=== PATIENT | female | born 2000 | race Caucasian/White ===

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

== ENCOUNTER 2022-08-04 14:22 | Inpatient (IN) | payer OTHER ==
[~2022-08-04] VITALS: Ht 160 cm; Wt 54.4 kg
[~2022-08-04 14:22] MED LIST changes: +SEPTDS PO
[2022-08-04 14:40] VITALS: BP 103/61
[2022-08-04 16:33] LABS: BILIRUBIN 1+ (Negative); BLOOD 3+ (Negative); CLARITY Cloudy (Clear); COLOR Red (Yellow); GLUCOSE 1+ (Negative); KETONE 4+ (Negative); LEUKO ESTERASE 2+ (Negative); NITRITE Negative (Negative); PH 5.5 (4.5-8.0); SPECIFIC GRAVITY >= 1.030 (1.001-1.030)
[2022-08-04 16:56] LABS: BASO # 0.1 10*3/uL (0.0-0.1); BASO % 0.5 % (0.0-1.0); EOS % 0.1 % (1.0-4.0); HEMATOCRIT 37.6 % (37.0-47.0); LYMPH # 0.9 10*3/uL (1.3-4.4); LYMPH % 5.1 % (27.0-41.0); MEAN CELL VOLUME 84.1 fl (81.0-99.0); MEAN CORPUSCULAR HGB 30.4 pg (27.0-31.0); MEAN CORPUSCULAR HGB CONC 36.2 g/dl (33.0-37.0); MEAN PLATELET VOLUME 10.9 fl (9.6-12.3); MONO # 0.8 10*3/uL (0.1-1.0); MONO % 4.6 % (3.0-9.0); NEUT % 89.3 % (47.0-73.0); PLATELET COUNT AUTOMATED 264 10*3/uL (130-400); RED BLOOD COUNT 4.47 10*6/uL (4.10-5.10); RED CELL DISTRI WIDTH 11.6 % (0-14.5); WHITE BLOOD COUNT 16.8 10*3/uL (4.8-10.8)
[2022-08-04 17:06] LABS: RBC 31-40 rbc/hpf (0-2)
[2022-08-04 17:07] LABS: EPITHELIAL CELLS 21-30
[2022-08-04 17:12] LABS: ALKALINE PHOSPHATASE 47 U/L (46-116); BUN 9 mg/dl (9-23); CHLORIDE 103 mmol/L (98-107); CREATININE 0.67 mg/dL (0.55-1.02); LIPASE 34 U/L (12-53); POTASSIUM 3.2 mmol/L (3.4-5.1); SGPT/ALT 13 U/L (10-49); SODIUM 138 mmol/L (136-145); TOTAL PROTEIN 7.5 gm/dL (6.0-8.0)
== END 2022-08-05 01:34 | disposition left against medical advice (07) | DRG 720 ==
LOC: ED 14:22 → EDHOLD 20:42
PROVIDERS: Physician Assistant; ADMIT Internal Medicine; ATTEND Internal Medicine
DX: A41.9 Sepsis, unspecified organism (principal); N30.01 Acute cystitis with hematuria; K52.9 Noninfective gastroenteritis and colitis, unspecified; E87.20 Acidosis, unspecified; F41.9 Anxiety disorder, unspecified; R65.20 Severe sepsis without septic shock; E87.6 Hypokalemia; R73.9 Hyperglycemia, unspecified; F90.9 Attention-deficit hyperactivity disorder, unspecified type; F12.90 Cannabis use, unspecified, uncomplicated; Z82.49 Family history of ischemic heart disease and other diseases of the circulatory system; Z71.6 Tobacco abuse counseling; Z72.0 Tobacco use; Z53.29 Procedure and treatment not carried out because of patient's decision for other reasons

== ENCOUNTER → 2022-08-10 | Outpatient (CLI) | payer OTHER ==
[2022-08-10 09:56] LABS: BASO # 0.1 10*3/uL (0.0-0.1); BASO % 1.7 % (0.0-1.0); EOS # 0.3 10*3/uL (0.0-0.4); EOS % 4.9 % (1.0-4.0); HEMATOCRIT 38.9 % (37.0-47.0); LYMPH # 2.2 10*3/uL (1.3-4.4); LYMPH % 36.7 % (27.0-41.0); MEAN CELL VOLUME 88.2 fl (81.0-99.0); MEAN CORPUSCULAR HGB 30.6 pg (27.0-31.0); MEAN CORPUSCULAR HGB CONC 34.7 g/dl (33.0-37.0); MONO # 0.5 10*3/uL (0.1-1.0); MONO % 8.9 % (3.0-9.0); NEUT # 2.8 10*3/uL (2.3-7.9); NEUT % 47.6 % (47.0-73.0); PLATELET COUNT AUTOMATED 211 10*3/uL (130-400); RED BLOOD COUNT 4.41 10*6/uL (4.10-5.10); WHITE BLOOD COUNT 5.9 10*3/uL (4.8-10.8)
== END | disposition home or self-care (01) ==
LOC: RESCLI 03:52
PROVIDERS: Internal Medicine; ATTEND Internal Medicine
DX: F41.1 Generalized anxiety disorder (principal); R10.9 Unspecified abdominal pain; D64.9 Anemia, unspecified; R11.0 Nausea; J30.9 Allergic rhinitis, unspecified; J45.20 Mild intermittent asthma, uncomplicated; K21.9 Gastro-esophageal reflux disease without esophagitis; F90.9 Attention-deficit hyperactivity disorder, unspecified type; Z98.890 Other specified postprocedural states; F17.200 Nicotine dependence, unspecified, uncomplicated; Z72.89 Other problems related to lifestyle; Z91.010 Allergy to peanuts; Z91.018 Allergy to other foods; Z79.899 Other long term (current) drug therapy

== ENCOUNTER 2022-10-24 20:08 | Emergency (ER) | payer OTHER ==
[~2022-10-24] VITALS: Ht 160 cm; Wt 54.4 kg
== END 2022-10-24 22:28 | disposition home or self-care (01) ==
LOC: ED 20:08
DX: S81.852A Open bite, left lower leg, initial encounter (principal); Z98.890 Other specified postprocedural states; F12.90 Cannabis use, unspecified, uncomplicated; W54.0XXA Bitten by dog, initial encounter; Y93.89 Activity, other specified; Y92.89 Other specified places as the place of occurrence of the external cause; Y99.8 Other external cause status

== ENCOUNTER → 2022-11-16 | Outpatient (CLI) | payer OTHER | END | disposition home or self-care (01) | LOC: LAB 15:58 | PROVIDERS: ATTEND Nurse Practitioner Women's Health | DX: N91.2 Amenorrhea, unspecified (principal) ==

== ENCOUNTER → 2022-12-02 | Outpatient (CLI) | payer OTHER ==
[2022-12-02 18:06] LABS: TOTAL PROTEIN 7.5 gm/dL (6.0-8.0)
[2022-12-03 14:08] LABS: t-TRANSGLUTAMINASE (tTG) IGA <2 U/mL (0-3)
== END ==
LOC: US 16:00 → LAB 17:03
PROVIDERS: Pediatrics Pediatric Gastroenterology; ATTEND Nurse Practitioner Women's Health
DX: N83.01 Follicular cyst of right ovary (principal); N83.02 Follicular cyst of left ovary

== ENCOUNTER → 2024-05-04 | Outpatient (CLI) | payer OTHER ==
[~2024-05-04] MED LIST changes: +AVPAK AZITHROM250 M1 PO; +PREDNISONE50 MG PO
== END | disposition home or self-care (01) ==
LOC: LAB 10:46
PROVIDERS: ATTEND Family Medicine
DX: R09.89 Other specified symptoms and signs involving the circulatory and respiratory systems (principal)

== ENCOUNTER 2024-05-05 01:29 | Emergency (ER) | payer OTHER ==
[~2024-05-05] VITALS: Ht 160 cm; Wt 59.4 kg
[~2024-05-05 01:29] MED LIST changes: -AVPAK AZITHROM250 M1 PO; -PREDNISONE50 MG PO
[2024-05-05] MEDS ORDERED: AVPAK AZITHROM250 M1 PO (02:37)
[2024-05-05] MEDS ORDERED: PREDNISONE50 MG PO (02:37)
[2024-05-05] MEDS ORDERED: predniSONE 20 MG TAB PO ONE (02:40)
[2024-05-05] MEDS ORDERED: AZITHROMYCIN 250 MG TAB PO ONE (02:40)
== END 2024-05-05 02:59 | disposition home or self-care (01) ==
LOC: ED 01:29
DX: J40 Bronchitis, not specified as acute or chronic (principal); F12.90 Cannabis use, unspecified, uncomplicated; Z98.890 Other specified postprocedural states

== ENCOUNTER 2025-01-07 05:58 | Emergency (ER) | payer OTHER ==
[~2025-01-07] VITALS: Ht 160 cm; Wt 70.3 kg
[~2025-01-07 05:58] MED LIST changes: +AVPAK AZITHROM250 M1 PO; +PREDNISONE50 MG PO
[2025-01-07] MEDS ORDERED: PREDNISONE50 MG PO (08:02)
[2025-01-07] MEDS ORDERED: OMNICEF300 MG PO (08:02)
[2025-01-07] MEDS ORDERED: VIBRAMYCIN100 MG PO (08:02)
== END 2025-01-07 08:13 | disposition home or self-care (01) ==
LOC: ED 05:58
DX: J40 Bronchitis, not specified as acute or chronic (principal); F12.90 Cannabis use, unspecified, uncomplicated; F17.220 Nicotine dependence, chewing tobacco, uncomplicated; Z79.899 Other long term (current) drug therapy

== ENCOUNTER 2025-02-02 14:07 | Emergency (ER) | payer OTHER ==
[~2025-02-02] VITALS: Ht 160 cm; Wt 74.8 kg
[~2025-02-02 14:07] MED LIST changes: +OMNICEF300 MG PO; +VIBRAMYCIN100 MG PO
[2025-02-02] MEDS ORDERED: AMITRIPTYLINE10 MG PO (14:33)
[2025-02-02] MEDS ORDERED: LAMOTRIGINE150 MG PO (14:34)
[2025-02-02] MEDS ORDERED: PRISTIQ50 MG PO (14:34)
[2025-02-02] MEDS ORDERED: CAPLYTA42 MG PO (14:34)
[2025-02-02] MEDS ORDERED: HYDROXYZINE HCL25 MG PO (14:34)
[2025-02-02] MEDS ORDERED: BUSPIRONE HCL10 MG PO (14:35)
[2025-02-02] MEDS ORDERED: NAPROSYN500 MG PO (15:34)
[2025-02-02] MEDS ORDERED: NAPROXEN 250 MG TAB PO ONE (15:35)
== END 2025-02-02 15:38 | disposition home or self-care (01) ==
LOC: ED 14:07
DX: S63.614A Unspecified sprain of right ring finger, initial encounter (principal); Z79.899 Other long term (current) drug therapy; F17.200 Nicotine dependence, unspecified, uncomplicated; X58.XXXA Exposure to other specified factors, initial encounter; Y93.89 Activity, other specified; Y92.89 Other specified places as the place of occurrence of the external cause; Y99.8 Other external cause status

== ENCOUNTER 2025-02-26 18:46 | Emergency (ER) | payer OTHER ==
[~2025-02-26] VITALS: Ht 165.1 cm; Wt 77.1 kg
[~2025-02-26 18:46] MED LIST changes: +AMITRIPTYLINE10 MG PO; +BUSPIRONE HCL10 MG PO; +CAPLYTA42 MG PO; +HYDROXYZINE HCL25 MG PO; +LAMOTRIGINE150 MG PO; +NAPROSYN500 MG PO; +PRISTIQ50 MG PO
[2025-02-26] MEDS ORDERED: Acetaminophen/Hydrocodone 5 MG/325 MG TABLET PO ONE (21:05)
[2025-02-26] MEDS ORDERED: HYDROCODONE-AC1 EAC1 PO (22:02)
== END 2025-02-26 22:07 | disposition home or self-care (01) ==
LOC: ED 18:46
DX: S62.316A Displaced fracture of base of fifth metacarpal bone, right hand, initial encounter for closed fracture (principal); F31.9 Bipolar disorder, unspecified; F41.9 Anxiety disorder, unspecified; F12.90 Cannabis use, unspecified, uncomplicated; F17.200 Nicotine dependence, unspecified, uncomplicated; Z79.899 Other long term (current) drug therapy; W22.01XA Walked into wall, initial encounter; Y93.89 Activity, other specified; Y92.89 Other specified places as the place of occurrence of the external cause; Y99.8 Other external cause status

== ENCOUNTER → 2025-03-07 | Outpatient (CLI) | payer OTHER ==
[~2025-03-07] MED LIST changes: +HYDROCODONE-AC1 EAC1 PO
[2025-03-07 16:57] LABS: BASO # 0.0 10*3/uL (0.0-0.1); BASO % 0.4 % (0.0-1.0); EOS # 0.9 10*3/uL (0.0-0.4); EOS % 12.3 % (1.0-4.0); MEAN CELL VOLUME 88.2 fl (81.0-99.0); MEAN CORPUSCULAR HGB 28.8 pg (27.0-31.0); MEAN PLATELET VOLUME 9.9 fl (9.6-12.3); MONO # 0.6 10*3/uL (0.1-1.0); MONO % 7.5 % (3.0-9.0); NEUT # 4.0 10*3/uL (2.3-7.9); NEUT % 54.4 % (47.0-73.0); NUCLEATED RED BLOOD CELL 0.0 % (0.0-0.0); NUCLEATED RED BLOOD CELL 0.0 10*3/uL (0.0-0.0); PLATELET COUNT AUTOMATED 260 10*3/uL (130-400); RED CELL DISTRI WIDTH 12.9 % (0-14.5)
[2025-03-07 17:22] LABS: BUN 8 mg/dl (9-23); FREE T4 1.13 ng/dl (0.89-1.76); LDL CHOLESTEROL 114 mg/dL (9-159); SGPT/ALT 17 U/L (5-49)
== END ==
LOC: ORTHO 02:29 → LAB 02:29 → ORTHO 15:10
PROVIDERS: Nurse Practitioner; ATTEND Orthopaedic Surgery
DX: S62.345D Nondisplaced fracture of base of fourth metacarpal bone, left hand, subsequent encounter for fracture with routine healing (principal); X58.XXXA Exposure to other specified factors, initial encounter; Y93.89 Activity, other specified; Y92.89 Other specified places as the place of occurrence of the external cause; Y99.8 Other external cause status

== ENCOUNTER 2025-04-23 23:21 | Emergency (ER) | payer OTHER ==
[~2025-04-23] VITALS: Ht 160 cm; Wt 68.0 kg
[2025-04-23] MEDS ORDERED: SODIUM CHLORIDE 0.9% 1,000 ML IV ONE (23:45)
[2025-04-23] MEDS ORDERED: Ondansetron Hydrochloride 4 MG/2 ML VIAL IV ONE (23:45)
== END 2025-04-24 01:04 | disposition left against medical advice (07) ==
LOC: ED 23:21
DX: R11.2 Nausea with vomiting, unspecified (principal); F12.90 Cannabis use, unspecified, uncomplicated; F17.290 Nicotine dependence, other tobacco product, uncomplicated; Z53.29 Procedure and treatment not carried out because of patient's decision for other reasons

== ENCOUNTER 2025-05-31 18:57 | Emergency (ER) | payer OTHER ==
[~2025-05-31] VITALS: Ht 165.1 cm; Wt 68.0 kg
[2025-05-31 19:33] LABS: BILIRUBIN Negative (Negative); BLOOD Negative (Negative); CLARITY Clear (Clear); COLOR Yellow (Yellow); KETONE 2+ (Negative); LEUKO ESTERASE Trace (Negative); NITRITE Negative (Negative); PH 6.5 (4.5-8.0); SPECIFIC GRAVITY 1.020 (1.001-1.030); UROBILINOGEN 1.0 E.U./dl (0.0-1.0)
[2025-05-31 19:34] LABS: BASO # 0.1 10*3/uL (0.0-0.1); BASO % 0.8 % (0.0-1.0); EOS # 0.2 10*3/uL (0.0-0.4); EOS % 2.5 % (1.0-4.0); MEAN CELL VOLUME 88.1 fl (81.0-99.0); MEAN CORPUSCULAR HGB 29.7 pg (27.0-31.0); MEAN PLATELET VOLUME 10.2 fl (9.6-12.3); MONO # 0.7 10*3/uL (0.1-1.0); MONO % 7.0 % (3.0-9.0); NEUT # 6.3 10*3/uL (2.3-7.9); NEUT % 67.1 % (47.0-73.0); NUCLEATED RED BLOOD CELL 0.0 % (0.0-0.0); NUCLEATED RED BLOOD CELL 0.0 10*3/uL (0.0-0.0); PLATELET COUNT AUTOMATED 288 10*3/uL (130-400); RED CELL DISTRI WIDTH 12.9 % (0-14.5)
[2025-05-31 19:45] LABS: BACTERIA 1+; EPITHELIAL CELLS 21-30; MUCOUS 2+; RBC 0-2 rbc/hpf (0-2)
[2025-05-31] MEDS ORDERED: AMOX-CLAV 875-1 EACH PO (19:47)
[2025-05-31 20:03] LABS: BUN 9 mg/dl (9-23)
[2025-05-31 20:04] LABS: BETA-HCG, QUANT 12371.0 mIU/mL (3-10)
== END 2025-05-31 20:21 | disposition home or self-care (01) ==
LOC: ED 18:57
PROVIDERS: Internal Medicine
DX: Z32.01 Encounter for pregnancy test, result positive (principal); R82.71 Bacteriuria; F12.90 Cannabis use, unspecified, uncomplicated; F17.290 Nicotine dependence, other tobacco product, uncomplicated

== ENCOUNTER 2025-06-03 12:02 | Emergency (ER) | payer OTHER ==
[~2025-06-03] VITALS: Ht 165.1 cm; Wt 68.0 kg
[~2025-06-03 12:02] MED LIST changes: +AMOX-CLAV 875-1 EACH PO
[2025-06-03 12:35] LABS: BASO # 0.1 10*3/uL (0.0-0.1); BASO % 0.7 % (0.0-1.0); EOS # 0.1 10*3/uL (0.0-0.4); EOS % 0.7 % (1.0-4.0); MEAN CELL VOLUME 87.6 fl (81.0-99.0); MEAN CORPUSCULAR HGB 29.5 pg (27.0-31.0); MEAN PLATELET VOLUME 10.1 fl (9.6-12.3); MONO # 0.7 10*3/uL (0.1-1.0); MONO % 7.3 % (3.0-9.0); NEUT # 7.5 10*3/uL (2.3-7.9); NEUT % 77.1 % (47.0-73.0); NUCLEATED RED BLOOD CELL 0.0 % (0.0-0.0); NUCLEATED RED BLOOD CELL 0.0 10*3/uL (0.0-0.0); PLATELET COUNT AUTOMATED 277 10*3/uL (130-400); RED CELL DISTRI WIDTH 12.8 % (0-14.5)
[2025-06-03 12:51] LABS: BUN 7 mg/dl (9-23)
[2025-06-03 13:05] LABS: BILIRUBIN Negative (Negative); BLOOD Negative (Negative); CLARITY Clear (Clear); COLOR Yellow (Yellow); KETONE Negative (Negative); LEUKO ESTERASE Negative (Negative); NITRITE Negative (Negative); PH 7.0 (4.5-8.0); SPECIFIC GRAVITY <= 1.005 (1.001-1.030); UROBILINOGEN 0.2 E.U./dl (0.0-1.0)
[2025-06-03] MEDS ORDERED: Ondansetron 4 MG 2 TAB ED PACK PO SCH (14:05)
== END 2025-06-03 13:41 | disposition home or self-care (01) ==
LOC: ED 12:02
PROVIDERS: Nurse Practitioner Family
DX: O21.9 Vomiting of pregnancy, unspecified (principal); O99.321 Drug use complicating pregnancy, first trimester; F17.200 Nicotine dependence, unspecified, uncomplicated; F19.20 Other psychoactive substance dependence, uncomplicated; Z3A.01 Less than 8 weeks gestation of pregnancy

== ENCOUNTER 2025-06-05 11:53 | Emergency (ER) | payer OTHER ==
[~2025-06-05] VITALS: Ht 165.1 cm; Wt 68.0 kg
[2025-06-05 12:46] LABS: BASO # 0.1 10*3/uL (0.0-0.1); BASO % 0.9 % (0.0-1.0); EOS # 0.1 10*3/uL (0.0-0.4); EOS % 0.8 % (1.0-4.0); MEAN CELL VOLUME 88.6 fl (81.0-99.0); MEAN CORPUSCULAR HGB 29.7 pg (27.0-31.0); MEAN PLATELET VOLUME 10.0 fl (9.6-12.3); MONO # 0.7 10*3/uL (0.1-1.0); MONO % 7.7 % (3.0-9.0); NEUT # 6.5 10*3/uL (2.3-7.9); NEUT % 74.9 % (47.0-73.0); NUCLEATED RED BLOOD CELL 0.0 % (0.0-0.0); NUCLEATED RED BLOOD CELL 0.0 10*3/uL (0.0-0.0); PLATELET COUNT AUTOMATED 264 10*3/uL (130-400); RED CELL DISTRI WIDTH 12.8 % (0-14.5)
[2025-06-05 12:53] LABS: BILIRUBIN Negative (Negative); BLOOD Negative (Negative); CLARITY Clear (Clear); COLOR Yellow (Yellow); KETONE Negative (Negative); LEUKO ESTERASE Negative (Negative); NITRITE Negative (Negative); PH 8.0 (4.5-8.0); SPECIFIC GRAVITY 1.020 (1.001-1.030); UROBILINOGEN 1.0 E.U./dl (0.0-1.0)
[2025-06-05 13:14] LABS: BACTERIA 2+; MUCOUS TRACE; RBC 0-2 rbc/hpf (0-2); WBC 0-2 wbc/hpf (0-5)
[2025-06-05 13:18] LABS: BUN 7 mg/dl (9-23)
[2025-06-05 13:20] LABS: BETA-HCG, QUANT 43025.0 mIU/mL (3-10)
== END 2025-06-05 14:02 | disposition home or self-care (01) ==
LOC: ED 11:53
PROVIDERS: Nurse Practitioner Family
DX: O46.91 Antepartum hemorrhage, unspecified, first trimester (principal); O99.321 Drug use complicating pregnancy, first trimester; F12.90 Cannabis use, unspecified, uncomplicated; O99.331 Smoking (tobacco) complicating pregnancy, first trimester; F17.290 Nicotine dependence, other tobacco product, uncomplicated; Z3A.01 Less than 8 weeks gestation of pregnancy

== ENCOUNTER 2025-06-14 12:12 | Emergency (ER) | payer OTHER ==
[~2025-06-14] VITALS: Ht 165.1 cm; Wt 70.3 kg
== END 2025-06-14 14:38 | disposition home or self-care (01) ==
LOC: ED 12:12
DX: O26.891 Other specified pregnancy related conditions, first trimester (principal); K59.00 Constipation, unspecified; O99.331 Smoking (tobacco) complicating pregnancy, first trimester; F17.290 Nicotine dependence, other tobacco product, uncomplicated; O99.321 Drug use complicating pregnancy, first trimester; F12.90 Cannabis use, unspecified, uncomplicated; Z98.890 Other specified postprocedural states; Z3A.01 Less than 8 weeks gestation of pregnancy